=== PATIENT | male | born 1990 | race Caucasian/White ===

== ENCOUNTER 2016-09-30 08:51 | Emergency (ER) | payer MEDICAID ==
[~2016-09-30] VITALS: Ht 175.3 cm; Wt 84.0 kg
[2016-09-30 08:55] VITALS: Ht 175.3 cm; Wt 84.0 kg
--- NOTE | 2016-09-30 09:14 | ERD ---
ER Documentation Chief Complaint Date/Time DATE: 09/30/16 TIME: 09:13 Chief Complaint rt side testicular pain radaiting to rt lower abd today HPI This a 25-year-old male who presents the emergency department today complaining of right-sided testicular pain that started this morning. Patient states he had pain when he got up this morning. States that years ago he had a small ball on his testicle but was unsure what it was. He has not taken medication for the pain. Denies any fevers or chills or dysuria. ROS All systems reviewed and are negative except as per history of present illness. Medications Home Meds Active Scripts Doxycycline Hyclate* (Doxycycline Hyclate*) 100 Mg Tablet.dr, 100 MG PO BID for 7 Days, TAB Prov:SARAH LYNN PA-C 09/30/16 Naproxen* (Naprosyn*) 500 Mg Tablet, 500 MG PO BID Y for PAIN AND/OR INFLAMMATION, #30 TAB Prov:SARAH LYNN PA-C 09/30/16 Hydrocodone/Acetaminophen (Milford 5-325 Tablet) 1 Each Tablet, 1 TAB PO Q6H Y for PAIN, #15 TAB Prov:SARAH LYNN PA-C 09/30/16 Allergies Allergies: Coded Allergies: No Known Allergy (Unverified , 09/30/16) PMhx/Soc Medical and Surgical Hx: pt denies Medical Hx, pt denies Surgical Hx History of Surgery: No Anesthesia Reaction: No Hx Neurological Disorder: No Hx Respiratory Disorders: No Hx Psychiatric Problems: No Hx Miscellaneous Medical Probl: No Hx Alcohol Use: No Hx Substance Use: No Hx Tobacco Use: No Physical Exam Vitals Vital Signs Date Time Temp Pulse Resp B/P Pulse Ox O2 Delivery O2 Flow Rate FiO2 09/30/16 08:55 98.2 89 18 117/82 98 Physical Exam Const: No acute distress Head: Atraumatic Eyes: Normal Conjunctiva ENT: Normal External Ears, Nose and Mouth. Neck: Full range of motion..~ No meningismus. Resp: Clear to auscultation bilaterally Cardio: Regular rate and rhythm, no murmurs Abd: Soft, non tender, non distended. Normal bowel sounds. No right lower quadrant tenderness. no tenderness at McBurney's. : Testicular exam. Circumcised penis. No purulent drainage. Tenderness palpation right testicle. Left testicle nontender. Testicles descended bilaterally. No erythema or warmth Skin: No petechiae or rashes Back: No midline or flank tenderness Ext: No cyanosis, or edema Neur: Awake and alert Psych: Normal Mood and Affect Results 24 hrs Laboratory Tests Test 09/30/16 09:26 Bedside Urine pH (LAB) 5.5 Bedside Urine Protein (LAB) Negative Bedside Urine Glucose (UA) Negative Bedside Urine Ketones (LAB) Negative Bedside Urine Blood Negative Bedside Urine Nitrite (LAB) Negative Bedside Urine Leukocyte Esterase (L Negative Current Medications Medications (Trade) Dose Ordered Sig/Ramin Route PRN Reason Start Time Stop Time Status Last Admin Dose Admin Acetaminophen/ Hydrocodone Bitart (Milford (5/325)) 1 tab ONCE ONCE PO 09/30/16 09:30 09/30/16 09:31 DC 09/30/16 09:21 DIAGNOSTIC IMAGING REPORT Patient: DIANNE MCCORMACK : 1990 Age: 25 Sex: M MR #: [id number] DOS: 09/30/16 0000 Ordering MD: SARAH LYNN PA-C Location: [facility] Room/Bed: PROCEDURE: Scrotal ultrasound CLINICAL INDICATION: Scrotal pain TECHNIQUE: Scrotal ultrasound was performed with sagittal and transverse views. Guan scale and color imaging was performed. Images were reviewed on high resolution PACS monitors. COMPARISON: None available FINDINGS: The right testicle measures 3.7 x 2.2 x 2.5 cm. There is normal size and echogenicity and morphology of the right testicle with normal blood flow. There is a 9 mm right epididymal head cyst. There is a small right hydrocele. No varicocele is seen. The left testicle measures 2.1 x 2.6 x 3.6 cm. There is normal size and echogenicity and morphology of the left testicle with normal blood flow. The left epididymis is normal. No hydrocele or varicocele is seen. Soft tissues are unremarkable. IMPRESSION: 1. Small right hydrocele. 2. 9 mm right epididymal head cyst. 3. No evidence of testicular mass or torsion. RPTAT: QQ .José Manuel Patel MD, MD Date Time Electronically viewed and signed by .José Manuel Patel MD, MD on 09/30/2016 11: 10 .M/ CC: SARAH LYNN PA-C Procedures/MDM This 25-year-old male who presents the emergency department today complaining of right-sided testicular pain that started this morning when he woke up. On physical exam patient has right-sided testicular pain. I did obtain a UA and testicular ultrasound UA is negative for infection. I did send the urine for gonorrhea and chlamydia. Testicular ultrasound shows a small right hydrocele. There is a 9 mm right epididymal head cyst. There is no evidence of testicular torsion or mass. Soft tissue is unremarkable. Patient symptoms at this time consistent with right-sided testicular pain. Patient was given Milford here in the emergency department. I will give him a prescription for Milford Naprosyn for home. I did discuss the patient with Dr. Starks and he has recommended the patient be given a prescription for doxycycline to treat possible epididymitis. Patient denies any abdominal pain and has no abdominal pain on physical exam of low suspicion for incarcerated hernia, acute surgical abdomen. At this time the patient is stable for discharge and outpatient management. Patient should follow up with their PCP in the next 1-2 days. They may return to the emergency department sooner for any persistent or worsening of symptoms. Patient understood and agreed with the plan. Departure Diagnosis: Primary Impression: Pain in testicle Condition: Fair SARAH LYNN PA-C Sep 30, 2016 09:14
[2016-09-30 09:26] LABS: URINE BLOOD (Dip) POC Negative (NEGATIVE)
[2016-09-30] MEDS ORDERED: HYDROCODONE/APAP (5/325) TAB PO ONE (09:30)
--- NOTE | 2016-09-30 11:11 | RADRPT ---
PROCEDURE: Scrotal ultrasound CLINICAL INDICATION: Scrotal pain TECHNIQUE: Scrotal ultrasound was performed with sagittal and transverse views. Guan scale and co dacia imaging was performed. Images were reviewed on high resolution PACS monitors. COMPARISON: None available FINDINGS: The right testicle measures 3.7 x 2.2 x 2.5 cm. There is normal size and echogenicity and morphology of the right testicle with normal blood flow. There is a 9 mm right epididymal head cyst. There is a small right hydrocele. No varicocele is seen. The left testicle measures 2.1 x 2.6 x 3.6 cm. There is normal size and echogenicity and morphology of the left testicle with normal blood flow. The left epididymis is normal. No hydrocele or varicocele is seen. Soft tissues are unremarkable. IMPRESSION: 1. Small right hydrocele. 2. 9 mm right epididymal head cyst. 3. No evidence of testicular mass or torsion. RPTAT: QQ .José Manuel Patel MD, MD Date Time Electronically viewed and signed by .José Manuel Patel MD, on 09/30/2016 11:10 .M/
[2016-09-30] MEDS ORDERED: HYDR-906 PO (11:33)
[2016-09-30] MEDS ORDERED: DOXY100T20 PO (11:34)
[2016-09-30] MEDS ORDERED: NAPR-260 PO (11:34)
[2016-09-30 12:01] VITALS: TEMP 98
== END 2016-09-30 12:01 | disposition home or self-care (01) ==
LOC: FTE 08:51
DX: N50.811 Right testicular pain (principal)
CPT/HCPCS: 76870; 81003; 87591; Z7502; Z7610

== ENCOUNTER 2017-03-27 19:07 | Emergency (ER) | payer SELFPAY ==
[~2017-03-27] VITALS: Ht 172.7 cm; Wt 84.1 kg
[~2017-03-27 19:07] MED LIST: DOXY100T20 PO; HYDR-906 PO; NAPR-260 PO
[2017-03-27 19:55] VITALS: Ht 172.7 cm; Wt 84.1 kg
[2017-03-28] MEDS ORDERED: HYDROCODONE/APAP (10/325) TAB PO ONE
--- NOTE | 2017-03-28 00:29 | ERD ---
ER Documentation Chief Complaint Chief Complaint left foot pain/swelling s/p mechanical fall at home HPI 26-year-old male presents to emergency department for complaints of left foot and ankle swelling after twisting it when he fell at home today. Patient does complain of pain throbbing pain, 6/10 scale, as was upon movement, denies any deformity. Patient does complain of swelling. Patient did not take any medications to help with symptoms. ROS All systems reviewed and are negative except as per history of present illness. Medications Home Meds Active Scripts Doxycycline Hyclate* (Doxycycline Hyclate*) 100 Mg Tablet.dr, 100 MG PO BID for 7 Days, TAB Prov:SARAH LYNN PA-C 09/30/16 Naproxen* (Naprosyn*) 500 Mg Tablet, 500 MG PO BID Y for PAIN AND/OR INFLAMMATION, #30 TAB Prov:SARAH LYNN PA-C 09/30/16 Hydrocodone/Acetaminophen (Cranberry 5-325 Tablet) 1 Each Tablet, 1 TAB PO Q6H Y for PAIN, #15 TAB Prov:SARAH LYNN PA-C 09/30/16 Allergies Allergies: Coded Allergies: No Known Allergy (Unverified , 03/27/17) PMhx/Soc Medical and Surgical Hx: pt denies Medical Hx, pt denies Surgical Hx History of Surgery: No Anesthesia Reaction: No Hx Neurological Disorder: No Hx Respiratory Disorders: No Hx Cardiac Disorders: No Hx Psychiatric Problems: No Hx Miscellaneous Medical Probl: No Hx Alcohol Use: Yes Hx Substance Use: No Hx Tobacco Use: No Smoking Status: Never smoker FmHx Family History: No coronary disease, No diabetes, No other Physical Exam Vitals Vital Signs Date Time Temp Pulse Resp B/P Pulse Ox O2 Delivery O2 Flow Rate FiO2 03/27/17 19:55 100.5 107 18 137/80 97 Physical Exam GENERAL: The patient is well developed and appropriate for usual state of health, in no apparent distress. CHEST: Clear to auscultation bilaterally. There are no rales, wheezes or rhonchi. HEART: Regular rate and rhythm. No murmurs, clicks, rubs or gallops. No S3 or S4. ABDOMEN: Soft, nontender and nondistended. Good bowel sounds. No rebound or guarding. No gross peritonitis. No gross organomegaly or masses. No Galeas sign or McBurney point tenderness. BACK: No midline or flank tenderness. EXTREMITIES: Tenderness on palpation on lateral medial aspect of the left ankle , no deformity noted. equal pulses bilaterally. There is no peripheral clubbing, cyanosis or edema. No focal swelling or erythema. Full range of motion. Grossly neurovascularly intact. NEURO: Alert and oriented. Cranial nerves 2-12 intact. Motor strength in all 4 extremities with 5/5 strength. Sensation grossly intact. Normal speech and gait. SKIN: There is no apparent rash or petechia. The skin is warm and dry. HEMATOLOGIC AND LYMPHATIC: There is no evidence of excessive bruising or lymphedema. No gross cervical, axillary, or inguinal lymphadenopathy. Results 24 hrs Current Medications Medications (Trade) Dose Ordered Sig/Ramin Route PRN Reason Start Time Stop Time Status Last Admin Dose Admin Acetaminophen/ Hydrocodone Bitart (Cranberry (10325)) 1 tab ONCE ONCE PO 03/28/17 00:00 03/28/17 00:01 DC 03/28/17 00:23 Patient was given medication for pain here in emergency department, after treatment, patient verbalized feeling much better. Patient's pain is improved. PROCEDURE: X-ray left foot CLINICAL INDICATION: Left forefoot pain status post injury. Reference marker is directed towards the anterior aspect of the ankle and the lateral aspect of the left midfoot. TECHNIQUE: 3 views left foot COMPARISON: None FINDINGS: No acute fracture dislocation. Soft tissues unremarkable. IMPRESSION: No acute fracture. RPTAT: UU Signed By: Sorin Bryson Md 03/28/2017 1:06:38 AM PROCEDURE: X-ray left ankle. CLINICAL INDICATION: Injury to lateral left ankle, with reference marker directed towards the lateral left ankle. TECHNIQUE: 3 views left ankle. COMPARISON: None. FINDINGS: Mild soft tissue swelling over the anterior left ankle. No acute fracture dislocation. IMPRESSION: No acute fracture. RPTAT: UU Signed By: Sorin Bryson Md 03/28/2017 1:05:25 AM vertex After receiving patients xray report, an Ashu wrap was applied on the patients ____. After application of the Ashu wrap, patient has intact sensation and circulation on distal area of the affected joint. Patient does not complain of numbness or tingling after application of the Ahsu wrap. Patient tolerated procedure well.Crutches was given to use afterwards. Procedures/MDM Medical Decision Making: Patient's pain is most likely consistent with a contusion or a sprain. There is no suspicion for neurovascular compromise. Patient has intact sensation and circulation of the affected extremity. There is low suspicion for septic arthritis. Patient does not have any fever. Radiology exams of the affected area does not show any fracture or dislocation. Disposition: Home. Patient is given prescription for ibuprofen for pain Cranberry for severe pain. Patient was advised to elevate the affected area and apply ice on affected area. Patient was advised that if symptoms are worse, numbness, tingling, high fever, unable to move joint, worsening symptoms, to return to emergency department immediately. Otherwise, patient is advised to follow up with the primary care doctor in 5-7 days for reevaluation of symptoms. Disclaimer: Inadvertent spelling and grammatical errors are likely due to EHR/ dictation software use and do not reflect on the overall quality of patient care. Also, please note that the electronic time recorded on this note does not necessarily reflect the actual time of the patient encounter. Departure Diagnosis: Primary Impression: Ankle sprain Encounter type: initial encounter Involved ligament of ankle: unspecified ligament Laterality: left Qualified Code: S93.402A - Sprain of left ankle, unspecified ligament, initial encounter Additional Impression: Foot contusion Encounter type: initial encounter Laterality: left Qualified Code: S90.32XA - Contusion of left foot, initial encounter Condition: Stable Patient Instructions: Contusion, Foot, Self-Care for Strains and Sprains Additional Instructions: Patient is given prescription for ibuprofen for pain Cranberry for severe pain. Patient was advised to elevate the affected area and apply ice on affected area. Patient was advised that if symptoms are worse, numbness, tingling, high fever, unable to move joint, worsening symptoms, to return to emergency department immediately. Otherwise, patient is advised to follow up with the primary care doctor in 5-7 days for reevaluation of symptoms. OSWALDO STYLES NP Mar 28, 2017 00:28
[2017-03-28] MEDS ORDERED: IBUP-1542 PO (01:11)
[2017-03-28] MEDS ORDERED: HYDR-906 PO (01:11)
[2017-03-28] MEDS ORDERED: KETOROLAC 60 MG INJ IM STA (01:35)
--- NOTE | 2017-03-28 08:37 | RADRPT ---
PROCEDURE: X-ray left foot CLINICAL INDICATION: Left forefoot pain status post injury. Reference marker is directed towards th e anterior aspect of the ankle and the lateral aspect of the left midfoot. TECHNIQUE: 3 views left foot COMPARISON: None FINDINGS: No acute fracture dislocation. Soft tissues unremarkable. IMPRESSION: No acute fracture. RPTAT: UU Physician Imelda Date Time Electronically viewed and signed by Michael Bryson Physician on 03/28/2017 01:06 RS/
--- NOTE | 2017-03-28 08:37 | RADRPT ---
PROCEDURE: X-ray left ankle. CLINICAL INDICATION: Injury to lateral left ankle, with reference marker directed towards the late ral left ankle. TECHNIQUE: 3 views left ankle. COMPARISON: None. FINDINGS: Mild soft tissue swelling over the anterior left ankle. No acute fracture dislocation. IMPRESSION: No acute fracture. RPTAT: UU Physician Imelda Date Time Electronically viewed and signed by Michael Bryson Physician on 03/28/2017 01:05 BHUPENDRA/
== END 2017-03-28 01:41 | disposition home or self-care (01) ==
LOC: FTE 19:07
DX: S93.402A Sprain of unspecified ligament of left ankle, initial encounter (principal); S90.32XA Contusion of left foot, initial encounter; W18.39XA Other fall on same level, initial encounter; Y92.009 Unspecified place in unspecified non-institutional (private) residence as the place of occurrence of the external cause
CPT/HCPCS: 73610; 73630; 96372; 99284; J1885

== ENCOUNTER 2017-05-05 06:22 | Emergency (ER) | payer SELFPAY ==
[~2017-05-05] VITALS: Ht 167.6 cm; Wt 89.0 kg
[~2017-05-05 06:22] MED LIST changes: +IBUP-1542 PO
[2017-05-05 06:24] VITALS: Ht 167.6 cm; Wt 89.0 kg
[2017-05-05] MEDS ORDERED: TETRACAINE 0.5% 4 ML OPH RIGHT EYE ONE (06:30)
[2017-05-05] MEDS ORDERED: FLUORESCEIN STRIP RIGHT EYE ONE (06:30)
[2017-05-05] MEDS ORDERED: DIPHTH/TET/ACEL PERTUSS (ADULT) 0.5 ML VIAL IM* ONE (07:30)
[2017-05-05] MEDS ORDERED: HYDROCODONE/APAP (5/325) TAB PO ONE (07:30)
[2017-05-05] MEDS ORDERED: HYDR-906 PO (08:02)
[2017-05-05] MEDS ORDERED: CPR3OO3.5 RIGHT EYE (08:02)
--- NOTE | 2017-05-05 08:31 | ERD ---
ER Documentation Chief Complaint Chief Complaint foreign object @ right eye; right eye pain/injury HPI 26-year-old male states that he was working with metal 2 days ago and developed sharp pain after the foreign body under his eye. The patient describes sharp pain, blurry vision with this, and watering. This is his first evaluation. Last tetanus shot is unknown. ROS All systems reviewed and are negative except as per history of present illness. Medications Home Meds Active Scripts Hydrocodone/Acetaminophen (Dawson 5-325 Tablet) 1 Each Tablet, 1 EACH PO Q6, #10 TAB Prov:TOI BLAKE PA-C 05/05/17 Ciprofloxacin Opht* (Ciloxan*) 0.3%-3.5 Opht Oint, 1 APPLIC RIGHT EYE Q4, #1 EA Prov:TOI BLAKE PA-C 05/05/17 Hydrocodone/Acetaminophen (Dawson 5-325 Tablet) 1 Each Tablet, 1 TAB PO Q6H Y for SEVERE PAIN LEVEL 7-10, #20 TAB Prov:OSWALDO STYLES NP 03/28/17 Ibuprofen* (Motrin*) 600 Mg Tab, 600 MG PO Q6H Y for PAIN AND OR ELEVATED TEMP, #30 TAB Prov:OSWALDO STYLES NP 03/28/17 Doxycycline Hyclate* (Doxycycline Hyclate*) 100 Mg Tablet.dr, 100 MG PO BID for 7 Days, TAB Prov:SARAH LYNN PA-C 09/30/16 Naproxen* (Naprosyn*) 500 Mg Tablet, 500 MG PO BID Y for PAIN AND/OR INFLAMMATION, #30 TAB Prov:SARAH LYNN PA-C 09/30/16 Hydrocodone/Acetaminophen (Dawson 5-325 Tablet) 1 Each Tablet, 1 TAB PO Q6H Y for PAIN, #15 TAB Prov:SARAH LYNN PA-C 09/30/16 Allergies Allergies: Coded Allergies: No Known Allergy (Unverified , 03/27/17) PMhx/Soc History of Surgery: No Anesthesia Reaction: No Hx Neurological Disorder: No Hx Respiratory Disorders: No Hx Cardiac Disorders: No Hx Psychiatric Problems: No Hx Miscellaneous Medical Probl: No Hx Alcohol Use: Yes Hx Substance Use: No Hx Tobacco Use: No Physical Exam Vitals Vital Signs Date Time Temp Pulse Resp B/P Pulse Ox O2 Delivery O2 Flow Rate FiO2 05/05/17 06:24 98.2 80 19 137/78 95 Physical Exam General: Well-developed, well-nourished. The patient appears in no acute distress. HEENT: Head is normocephalic, atraumatic. No scleral icterus. Eye Exam: Visual Whitt: Intact in all four quadrants bilaterally Lac ducts/glands: No swelling Lids w/ evertion: Normal, no foreign body Conj/Julian: Clear, negative Fluorescein/Carmen's, there is a small 1 mm dark foreign body seen in the center on the surface of the eye of the cornea in the visual axis. Anterior Chamber: Clear Neck: Supple. Nontender. Lungs: Clear to auscultation. Normal air movement. Heart: Regular rate and rhythm. S1 and S2 are normal. No murmurs, gallops, or rubs. Abdomen: Nondistended. Extremities: No clubbing or cyanosis. Moving extremities x 4. No weakness. Neurologic: Alert and oriented 3. No focal deficits. Normal speech and gait. Skin: Normal turgor. No rash or lesions. Results 24 hrs Current Medications Medications (Trade) Dose Ordered Sig/Ramin Route PRN Reason Start Time Stop Time Status Last Admin Dose Admin Tetracaine HCl (Tetracaine 0.5% Steri-Unit Missy) 1 drop ONCE ONCE RIGHT EYE 05/05/17 06:30 05/05/17 06:31 DC Fluorescein Sodium (Caxjc-H-Jxivq) 1 strip ONCE ONCE RIGHT EYE 05/05/17 06:30 05/05/17 06:31 DC Diphtheria/ Tetanus/Acell Pertussis (Adacel) 0.5 ml ONCE ONCE IM* 05/05/17 07:30 05/05/17 07:31 DC 05/05/17 07:17 Acetaminophen/ Hydrocodone Bitart (Dawson (5/325)) 1 tab ONCE ONCE PO 05/05/17 07:30 05/05/17 07:31 DC 05/05/17 07:15 Procedures/MDM ED COURSE: Patient's examination included a Mas lamp after fluorescein and tetracaine application. There was uptake at the center of the cornea where there is a superficial foreign body seen but no rupture. Applied tetracaine to allow the patient to be comfortable, and a 27-gauge needle was introduced to the area and a Q-tip was used to lift a flat metal stan. There appears to be some sort of foreign body versus frustrating that can be seen superficially on examination, to avoid further eye trauma, the patient will need follow-up with ophthalmology. Consult: I spoke with Dr. Maldonado, who is the on-call wool carder at [facility], who advised that the patient is appropriate to be followed up in the next 24-48 hours, however needs to be seen by ophthalmology and should be discharged home with Cipro ophthalmic drops to be applied 6 times a day. MEDICAL DECISION MAKIN-year-old male comes in with a foreign body to his right eye, and his piece of metal that had accidentally flown into his eye while he was working 2 days ago. I was able to remove a small piece of the foreign body, there is no evidence of globe rupture, the patient will require ophthalmology follow-up in the next 24-40 hours. We will give him information to all of you, I was advised by the wool carder that he have a clinic on the second floor which can be a walking basis and he may arrive at 730, patient was given detailed instructions on follow-up, otherwise if he is not able to go to the clinic he may go to the emergency department at this time directly at [facility]. The case was reviewed and discussed with Dr. Duffy who agrees with the plan of care as appropriate. Departure Diagnosis: Primary Impression: Eye injury Condition: Good Patient Instructions: Corneal Injury Referrals: [facility] Hours: Mon - Fri 9:00 AM - 5:00 PM [facility] YOU HAVE RECEIVED A MEDICAL SCREENING EXAM AND THE RESULTS INDICATE THAT YOU DO NOT HAVE A CONDITION THAT REQUIRES URGENT TREATMENT IN THE EMERGENCY DEPARTMENT. FURTHER EVALUATION AND TREATMENT OF YOUR CONDITION CAN WAIT UNTIL YOU ARE SEEN IN YOUR DOCTORS OFFICE WITHIN THE NEXT 1-2 DAYS. IT IS YOUR RESPONSIBILITY TO MAKE AN APPOINTMENT FOR FOLOW-UP CARE. IF YOU HAVE A PRIMARY DOCTOR --you should call your primary doctor and schedule and appointment IF YOU DO NOT HAVE A PRIMARY DOCTOR YOU CAN CALL OUR PHYSICIAN REFERRAL HOTLINE AT . IF YOU CAN NOT AFFORD TO SEE A PHYSICIAN YOU CAN CHOSE FROM THE FOLLOWING [facility] INSTITUTIONS: [facility] [address] [place] [address] [facility] [address] [place] [address] [address] Additional Instructions: Oftalmologa Specialist:Usted tiene randy condicin mdica que requiere que praveen a un especialista dentro de los prximos 1-2 abraham.POR FAVOR,CON SALDANA SEGUIMIENTO DE PRIMARIA PHSICIAN refferal. SI USTED NO TIENE UN MDICO GENERAL Y / O USTED NO PUEDE PAGAR calista a un mdico,los siguientes gutierrez RECURSOS sido suministrado a usted. ES SALDANA RESPONSABILIDAD PARA SER VISTOS POR EL ESPECIALISTA: TOI BLAKE PA-C May 05, 2017 08:31
--- NOTE | 2017-05-05 15:34 | EN ---
Date/Time of Note Date/Time of Note DATE: 05/05/17 TIME: 15:29 ER Progress Note Event note: Subjective: This patient was evaluated by me in conjunction with the PA. Briefly, this is a 26-year-old male who has a metallic foreign body in his right eye. He sustained this in a work-related injury 3 days ago and presents today with eye pain. Family history: As indicated on the initial history and physical during this patient encounter. Objective: Vital signs reviewed Const: No apparent distress, well-developed, well-nourished Head: Normocephalic, Atraumatic Eyes: Normal left ocular exam. On right eye exam, there is a small punctate metallic foreign body in the middle of the cornea that enhances with floor seen dye. No other obvious signs of corneal abrasion on Mas lamp exam. ENT: Normal External Ears, Nose and Mouth. Neck: No meningismus. Resp: Symmetric chest wall summers, no audible wheezes Cardio: Deferred Abd: Non distended Skin: No petechiae or rashes Back: Deferred Ext: No cyanosis, or edema Neur: Awake and alert, oriented 4. No facial droop. Normal strength and sensation. Psych: Normal mood and affect Assessment: Rust ring, right ocular metallic foreign body Plan: The PA attempted to remove most of the metallic foreign body, but some remained. I instructed the PA to discuss the findings with a edi programmer analyst. She was able to get a hold of the edi programmer analyst lawn care professional at [facility] all of you who felt that the patient may follow-up in 1-2 days. The patient requires ciprofloxacin drops. The PA will prescribe this utilizing the recommendations of the edi programmer analyst. At this time, the patient is stable for discharge. In addition to her ophthalmologic follow-up, the patient should also follow-up with his primary care physician in 2-3 days for reevaluation. The patient be given precautions with which to return to the emergency department. Please see PA history and physical for further detail. ESTELITA MUÑOZ MD May 05, 2017 15:34
== END 2017-05-05 08:33 | disposition home or self-care (01) ==
LOC: FTE 06:22
DX: S05.91XA Unspecified injury of right eye and orbit, initial encounter (principal); X58.XXXA Exposure to other specified factors, initial encounter; Y92.9 Unspecified place or not applicable; Z23 Encounter for immunization
CPT/HCPCS: 90471; 90715

== ENCOUNTER 2017-06-28 16:09 | Emergency (ER) | END 2017-06-28 20:32 | disposition home or self-care (01) ==